=== PATIENT | male | born 1985 | race African-American/Black ===

== ENCOUNTER 2022-05-31 18:56 | Emergency (ER) | payer SELFPAY ==
[2022-05-31 19:01] VITALS: BP 118/80; PULSE 72; RESP 18; TEMP 97; BMI 27.1
[2022-05-31] MEDS ORDERED: DIPHTH,PERTUSS(ACELL),TET 0.5 ML DISP.SYRIN IM ONE ×2 (20:04→20:15)
[2022-05-31] MEDS ORDERED: AMOX TR/POT CLAV 875MG/125MG TABLETS (FP) PO ONE (20:04)
[2022-05-31] MEDS ORDERED: AMOX TR/POT CLAV 875MG/125MG TABLETS (FP) ONE (20:15)
== END 2022-05-31 20:30 | disposition home or self-care (01) ==
LOC: JER 18:56 → JERFT 18:56
PROC: 3E0234Z Introduction of Serum, Toxoid and Vaccine into Muscle, Percutaneous Approach (ICD-10-PCS; principal; 2022-05-31)
DX: S81.831A Puncture wound without foreign body, right lower leg, initial encounter (principal); W54.0XXA Bitten by dog, initial encounter
CPT/HCPCS: 90715; 99284-25

== ENCOUNTER 2022-06-03 08:37 | Emergency (ER) | payer OTHER ==
[2022-06-03 08:47] VITALS: BP 141/93; PULSE 87; RESP 18; TEMP 99; BMI 27.1
[2022-06-03] MEDS ORDERED: RABIES VACCINE (PCEC)/PF 2.5 UNIT/VIAL IM ONE ×2 (09:24→09:45)
[2022-06-03] MEDS ORDERED: RABIES IMMUNE GLOBULIN 300 UNITS/1 ML VIAL IM ONE (09:24)
[2022-06-03] MEDS ORDERED: RABIES IMMUNE GLOBULIN 300 UNITS/1 ML VIAL ONE ×2 (09:55→11:48)
== END 2022-06-03 12:08 | disposition home or self-care (01) ==
LOC: JER 08:37 → JERFT 08:37
PROC: 3E0234Z Introduction of Serum, Toxoid and Vaccine into Muscle, Percutaneous Approach (ICD-10-PCS; principal; 2022-06-03)
PROC: 3E0234Z Introduction of Serum, Toxoid and Vaccine into Muscle, Percutaneous Approach (ICD-10-PCS; 2022-06-03)
DX: Z23 Encounter for immunization (principal)
CPT/HCPCS: 90375; 90675; 99282-25

== ENCOUNTER 2022-06-06 13:14 | Emergency (ER) | payer OTHER ==
[2022-06-06 13:24] VITALS: BP 118/85; PULSE 68; RESP 18; TEMP 98.5; BMI 25.0
[2022-06-06] MEDS ORDERED: RABIES VACCINE (PCEC)/PF 2.5 UNIT/VIAL IM ONE ×2 (13:36→13:39)
== END 2022-06-06 14:09 | disposition home or self-care (01) ==
LOC: JERFT 13:14
PROC: 3E0234Z Introduction of Serum, Toxoid and Vaccine into Muscle, Percutaneous Approach (ICD-10-PCS; principal; 2022-06-06)
DX: Z29.14 Encounter for prophylactic rabies immune globulin (principal); S81.852D Open bite, left lower leg, subsequent encounter; W54.0XXD Bitten by dog, subsequent encounter
CPT/HCPCS: 90675; 99281-25

== ENCOUNTER 2022-06-14 12:53 | Emergency (ER) | payer OTHER ==
[2022-06-14 13:05] VITALS: BP 115/74; PULSE 78; RESP 18; TEMP 97.9; BMI 27.1
[2022-06-14] MEDS ORDERED: RABIES VACCINE (PCEC)/PF 2.5 UNIT/VIAL IM ONE ×2 (13:55→14:07)
== END 2022-06-14 14:19 | disposition home or self-care (01) ==
LOC: JERFT 12:53
PROC: 3E0234Z Introduction of Serum, Toxoid and Vaccine into Muscle, Percutaneous Approach (ICD-10-PCS; principal; 2022-06-14)
DX: Z20.3 Contact with and (suspected) exposure to rabies (principal); Z23 Encounter for immunization
CPT/HCPCS: 90675; 99281-25